=== PATIENT | female | born 1960 | race Caucasian/White ===

== ENCOUNTER 2018-06-25 14:31 | Inpatient (IN) | payer MEDICAID ==
[2018-06-25] MEDS ORDERED: NS 500 ML IV ONE (15:10)
[2018-06-25 15:25] LABS: PLATELET COUNT 172 10^3/uL (150-400)
[2018-06-25 16:02] LABS: INR 0.98 (0.83-1.16); PROTIME(PATIENT) 13.2 SEC (12.0-15.0)
--- NOTE | 2018-06-25 16:02 | EDPHY ---
H & P Time Seen by Provider: 06/25/18 14:56 HPI/ROS: HPI Fever, cough, chest pain with cough. On chemotherapy. 58-year-old female with family. Currently being treated for metastatic breast cancer by her oncologist Dr. Kory Avila. She last had chemotherapy on June 15. She reports that last night she started feeling febrile and developed a cough. She describes this as a dry hacking and nonproductive cough. She also reports that she has been constipated and without a bowel movement in the last 4 days. She has had some intermittent lower abdominal cramping secondary to this. She denies any urinary complaints. She has not been wheezing. Other than the cough she denies any difficulty breathing. She reports that she does get sore in her mid substernal area with the cough only. ROS: Constitutional: As above, no chills. No weakness. Eyes: No discharge. No changes in vision. ENT: No sore throat. No nasal congestion or rhinorrhea. Respiratory: As above. No shortness of breath. Cardiac: As above, no palpitations. Gastrointestinal: No abdominal pain, no vomiting, no diarrhea. Genitourinary: No hematuria. No dysuria or increased frequency with urination. Musculoskeletal: No back pain. No neck pain. No myalgias or arthralgias. Skin: No rashes. Neurological: No headache. No focal weakness or altered sensation. Past medical history: Metastatic breast cancer. As above. Social history: Nonsmoker. Here with family. No alcohol. Physical Exam: General Appearance: Alert, she is not in distress. This patient is responding to questions appropriately and in full sentences. This patient appears generally well-hydrated and well-nourished. Eyes: Pupils equal and round no pallor or injection. No lid edema, erythema or injection. ENT, Mouth: Mucous membranes are moist. The pharyngeal tissues are unremarkable. No edema or swelling. No asymmetry suggestive of abscess. No erythema or exudates. Respiratory: There are no retractions, lungs are clear to auscultation with good air movement bilaterally. No tachypnea. She has an intermittent nonproductive hacking cough. Cardiovascular: Regular rate and rhythm. No murmur appreciated. Gastrointestinal: Abdomen is soft and nontender, no masses, bowel sounds normal. No focal tenderness at McBurney's point. No Ayala sign. Neurological: Motor sensory function is grossly intact. Cranial nerves are normal. Skin: Warm and dry, no rashes. Musculoskeletal: Neck is supple and nontender. Extremities are symmetrical. All joints range without pain or impingement. Psychiatric: No agitation. No depression. Database: EKG: EKG time is 3:08 p.m.; EKG shows a narrow complex normal sinus rhythm with a ventricular rate of 89. The MO, QRS, QT intervals are within normal limits. There are no ST-T wave changes indicative of ischemic or injury pattern. No evidence of right heart strain. Interpreted by me. Imaging: Chest x-ray PA and lateral; the cardiac mediastinal silhouette is unremarkable. No evidence of infiltrate or pneumothorax. Findings suggestive of bronchitis. No other acute cardiopulmonary disease process noted. Interpreted by me. Procedures: Emergency department course: Initial triage vital signs reviewed. She is febrile and tachycardic with low- grade hypoxemia on room air at 90. Pulse oximetry on 2 L of nasal cannula 98%, blood pressure 101/70, heart rate 88 on re-evaluation at 4:00 p.m.. She has had 500 cc of IV normal saline. Likely source of fever is a viral bronchitis. EKG obtained and reviewed by myself. She meets initial criteria for sepsis. At 4:00 p.m. On review of her initial blood work and improvement of her vital signs she does not meet criteria for severe sepsis. I discussed admission with the patient and family. They endorse. 4:10 p.m., I discussed the case with on-call hospitalist Dr. Judith Self. She accepts this patient for admission to the hospitalist service. We will start the patient on IV cefepime and IV vancomycin in the emergency department. Antibiotic administration reviewed with Dr. Self. Results of diagnostic workup discussed with the patient and family. All of their questions were answered. The patient is positive for influenza A. She does not have any findings suggestive of pneumonia on her chest x-ray. Antibiotics as noted above will be held. This was discussed with the admitting hospitalist Dr. Self. She agrees. The patient was given 75 mg of Tamiflu. The patient's remaining emergency department course under my care has been uneventful. The patient is admitted in stable condition to the hospitalist service. Differential Diagnosis: The differential diagnosis on this patient includes but is not limited to leukocytosis, fever, bronchitis, pneumonia, influenza, history of metastatic breast cancer.. This represents a partial list of diagnoses considered. These considerations are based on history, physical exam, past history, reassessment and diagnostic testing. Smoking Status: Never smoked Constitutional: Initial Vital Signs Temperature (C) 39.1 C H 06/25/18 14:39 Heart Rate 115 H 06/25/18 14:39 Respiratory Rate 18 06/25/18 14:39 Blood Pressure 98/57 L 06/25/18 14:39 O2 Sat (%) 90 L 06/25/18 14:39 O2 Delivery Mode Nasal Cannula O2 (L/minute) 2 Allergies/Adverse Reactions: No Known Allergies Allergy (Unverified 06/25/18 14:37) Medical Decision Making - Diagnostics Imaging Results: Imaging Impressions Chest X-Ray 06/25/18 15:10 Impression: Prominence of perihilar interstitial markings and peribronchial cuffing. Findings are nonspecific but can be seen with bronchitis, reactive airway disease, or viral process. - Data Points Laboratory Results: Laboratory Results 06/25/18 14:50 06/25/18 14:50 06/25/18 06/25/18 06/25/18 15:21 15:10 14:50 WBC RBC Hgb Hct MCV MCH MCHC RDW Plt Count MPV Neut % (Auto) Lymph % (Auto) [place] % (Auto) Eos % (Auto) Baso % (Auto) Nucleat RBC Rel Count Absolute Neuts (auto) Absolute Lymphs (auto) Absolute Monos (auto) Absolute Eos (auto) Absolute Basos (auto) Absolute Nucleated RBC Immature Gran % Immature Gran # Platelet Estimate PT 13.2 SEC SEC (12.0-15.0) INR 0.98 (0.83-1.16) APTT 26.3 SEC SEC (23.0-38.0) VBG Lactic Acid Sodium Potassium Chloride Carbon Dioxide Anion Gap BUN Creatinine Estimated GFR Glucose Calcium Total Bilirubin POC Troponin I 0.03 ng/mL ng/mL (0.00-0.08) Nasal Influenza A PCR FLU A DETECTED H (NEGATIVE) Nasal Influenza B PCR NEGATIVE FOR FLU B (NEGATIVE) 06/25/18 06/25/18 06/25/18 14:50 14:50 14:50 WBC 26.42 10^3/uL H 10^3/uL (3.80-9.50) RBC 3.72 10^6/uL L 10^6/uL (4.18-5.33) Hgb 12.2 g/dL L g/dL (12.6-16.3) Hct 37.8 % L % (38.0-47.0) MCV 101.6 fL H fL (81.5-99.8) MCH 32.8 pg pg (27.9-34.1) MCHC 32.3 g/dL L g/dL (32.4-36.7) RDW 17.8 % H % (11.5-15.2) Plt Count 172 10^3/uL 10^3/uL (150-400) MPV 10.1 fL fL (8.7-11.7) Neut % (Auto) Pending Lymph % (Auto) Pending [place] % (Auto) Pending Eos % (Auto) Pending Baso % (Auto) Pending Nucleat RBC Rel Count Pending Absolute Neuts (auto) Pending Absolute Lymphs (auto) Pending Absolute Monos (auto) Pending Absolute Eos (auto) Pending Absolute Basos (auto) Pending Absolute Nucleated RBC Pending Immature Gran % Pending Immature Gran # Pending Platelet Estimate Pending PT INR APTT VBG Lactic Acid Sodium 135 mEq/L mEq/L (135-145) Potassium 4.2 mEq/L mEq/L (3.5-5.2) Chloride 106 mEq/L mEq/L (97-110) Carbon Dioxide 24 mEq/l mEq/l (22-31) Anion Gap 5 mEq/L L mEq/L (6-14) BUN 11 mg/dL mg/dL (7-23) Creatinine 0.7 mg/dL mg/dL (0.6-1.0) Estimated GFR > 60 Glucose 91 mg/dL mg/dL (70-100) Calcium 8.5 mg/dL mg/dL (8.5-10.4) Total Bilirubin 0.4 mg/dL mg/dL (0.1-1.4) POC Troponin I Nasal Influenza A PCR Nasal Influenza B PCR 06/25/18 14:50 WBC RBC Hgb Hct MCV MCH MCHC RDW Plt Count MPV Neut % (Auto) Lymph % (Auto) [place] % (Auto) Eos % (Auto) Baso % (Auto) Nucleat RBC Rel Count Absolute Neuts (auto) Absolute Lymphs (auto) Absolute Monos (auto) Absolute Eos (auto) Absolute Basos (auto) Absolute Nucleated RBC Immature Gran % Immature Gran # Platelet Estimate PT INR APTT VBG Lactic Acid 1.1 mmol/L mmol/L (0.7-2.1) Sodium Potassium Chloride Carbon Dioxide Anion Gap BUN Creatinine Estimated GFR Glucose Calcium Total Bilirubin POC Troponin I Nasal Influenza A PCR Nasal Influenza B PCR Medications Given: Discontinued Medications Acetaminophen (Tylenol) 1,000 mg PO EDNOW ONE Stop: 06/25/18 16:05 Last Admin: 06/25/18 16:08 Dose: 1,000 mg Sodium Chloride (Ns) 500 mls @ 1,000 mls/hr IV EDNOW ONE PRN Reason: Protocol Stop: 06/25/18 15:39 Last Admin: 06/25/18 15:19 Dose: 500 mls Point of Care Test Results: Chemistry 06/25/18 15:21 POC Troponin I 0.03 ng/mL ng/mL (0.00-0.08) Departure - Departure Disposition: [facility] Acute Clinical Impression: Leukocytosis, Bronchitis, Fever, Metastatic breast cancer, On chemotherapy, Influenza A Referrals: Venus Rivas MD [Primary Care Provider] - As per Instructions
[2018-06-25] MEDS ORDERED: ACETAMINOPHEN 500 MG TAB PO ONE (16:04)
[2018-06-25] MEDS ORDERED: CEFEPIME HCL 2 GM in NS 100 ML IV ONE (16:06)
[2018-06-25] MEDS ORDERED: VANCOMYCIN HCL/NORMAL SALINE 250 ML IV ONE (16:07)
[2018-06-25] MEDS ORDERED: OSELTAMIVIR PHOSPHATE 75 MG CAP PO ONE (16:29)
[2018-06-25] MEDS ORDERED: ONDANSETRON 4 MG/2 ML VIAL IVP PRN (16:46)
[2018-06-25] MEDS ORDERED: ACETAMINOPHEN 325 MG TAB PO PRN (16:46)
[2018-06-25] MEDS ORDERED: BENZONATATE 100 MG CAP PO PRN (17:32)
[2018-06-25] MEDS ORDERED: LORazepam 1 MG TAB PO PRN (17:33)
[2018-06-25] MEDS ORDERED: BISACODYL 10 MG SUPP PR PRN (18:09)
[2018-06-25] MEDS ORDERED: MAGNESIUM HYDROXIDE 30 ML UDCUP PO PRN (18:09)
[2018-06-25] MEDS ORDERED: LACTULOSE 20 GM/30 ML UDCUP PO PRN (18:09)
[2018-06-25] MEDS ORDERED: POLYETHYLENE GLYCOL 3350 17 GM PKT PO PRN (18:09)
[2018-06-25] MEDS ORDERED: LORazepam 2 MG/ML INJ IVP PRN (18:12)
[2018-06-25] MEDS ORDERED: NS 1,000 ML IV SCH (18:15)
[2018-06-25] MEDS: OSELTAMIVIR PHOSPHATE 75 MG CAP PO SCH (18:33)
--- NOTE | 2018-06-25 18:43 | GHP ---
[f rep st] HISTORY AND PHYSICAL DATE OF ADMISSION: 06/25/2018 CHIEF COMPLAINT: Cough, fever. HISTORY OF PRESENT ILLNESS: A pleasant 58-year-old female, currently on chemotherapy for metastatic breast cancer by Dr. Mosqueda. Last chemotherapy June 15. Normally does not feel well a couple days after chemo, but noticed she felt more fatigued and nauseous than normal. [facility]ed to [facility] the following week and was treated with IV fluids, antiemetics, and steroids. Developed new productive cough last night with yellow sputum last night with associated sharp chest pain. Febrile to 101.9. Normal appetite and p.o. intake. Constipated for 4 days, which is not normal for her. Mild crampy abdominal pain. Not passing much gas. REVIEW OF SYSTEMS: I completed a 10-point review of systems, negative except as noted in HPI. PAST MEDICAL HISTORY: Metastatic breast cancer, on chemotherapy; hypothyroidism. PAST SURGICAL HISTORY: Removal of ovary and fallopian tube, rectocele/ cystocele surgery, breast implants. SOCIAL HISTORY: Lives in [place] by herself. Has 3 kids. No alcohol, tobacco , or illicits. FAMILY HISTORY: Maternal grandpa with DE, aunts with lung cancer, uncle with liver cancer. HOME MEDICATIONS: Ativan 0.25 mg q.6 hours p.r.n., dexamethasone as needed, Zofran as needed, levothyroxine, [place] Thyroid. ALLERGIES: None. PHYSICAL EXAMINATION: VITAL SIGNS: Temperature 38.2, blood pressure 91/52, heart rate in the 80s, respirations 16, and 92% on room air. GENERAL: Fatigued , but no acute distress. HEENT: PERRLA. Moist mucous membranes. CV: Regular rate and rhythm. LUNGS: Diminished, but no crackles or wheezes. ABDOMEN: Soft, nontender, nondistended. Positive bowel sounds. : Positive bowel sounds throughout. No tenderness with palpation. NEURO: 2 through 12 intact. PSYCH: Alert and oriented x3. LABS: WBCs 26, hemoglobin 12, hematocrit 37, platelets 172. Sodium 135, potassium 4.2, chloride 106, carbon dioxide 24, creatinine 0.7. Troponin 0.03. Coags within normal. Influenza A positive. Chest x-ray: personally reviewed by me. Perihilar interstitial markings. No overt opacity. EKG is personally reviewed by me. Normal sinus rhythm, ST flattening lateral leads. ASSESSMENT AND PLAN: 1. Influenza A: Tamiflu for 5 days. Supportive care with antitussives, intravenous Toradol for pain, intravenous fluids. 2. Sepsis: febrile, tachy, leukocytosis. Due to above. No PNA on CXR. Blood cultures pending 3. Leukocytosis: recently dosed Neulasta, steroids. Repeat in the morning. 4. Metastatic breast cancer: Followed by Dr. Mosqueda. Last chemotherapy 06/15. 5. Hypothyroidism: levothyroxine. 6. Diet: Regular. 7. Constipation: Check an abdominal x-ray and bowel regimen. 8. Deep venous thrombosis prophylaxis: Lovenox. DISPOSITION: Observation admission for supportive care with IV fluids, Tamiflu , and bowel regimen. /[id number]/MODL MTDD
[2018-06-25] MEDS: KETOROLAC 30 MG/1 ML SDV IVP PRN (19:51)
[2018-06-25] MEDS: GUAIFENESIN/DM 10 ML UDCUP PO PRN (19:52)
[2018-06-25] MEDS: SENNOSIDES/DOCUSATE SODIUM TAB PO SCH (19:52)
--- NOTE | 2018-06-25 22:58 | CPEKG ---
Test Reason : OPEN Blood Pressure : / mmHG Vent. Rate : 089 BPM Atrial Rate : 089 BPM P-R Int : 130 ms QRS Dur : 069 ms QT Int : 349 ms P-R-T Axes : 019 046 022 degrees QTc Int : 425 ms Sinus rhythm Confirmed by Deonte Lomeli ([id number]) on 06/25/2018 10:58:26 PM Referred By: Deonte Lomeli Confirmed By:Deonte Lomeli
[2018-06-25] MEDS: LORazepam 2 MG/ML INJ IVP PRN (23:08)
[2018-06-26] MEDS: LEVOTHYROXINE 75 MCG TAB PO SCH (06:09)
[2018-06-26] MEDS: LORazepam 2 MG/ML INJ IVP PRN (06:25)
[2018-06-26] MEDS: GUAIFENESIN/DM 10 ML UDCUP PO PRN (06:25)
[2018-06-26] MEDS: OSELTAMIVIR PHOSPHATE 75 MG CAP PO SCH ×2 (08:43→18:05)
[2018-06-26] MEDS: SENNOSIDES/DOCUSATE SODIUM TAB PO SCH ×2 (08:43→20:39)
[2018-06-26] MEDS: THYROID 60 MG TAB PO SCH (08:44)
[2018-06-26] MEDS: ENOXAPARIN 40 MG/0.4 ML SYR SC SCH (08:44)
[2018-06-26 10:22] LABS: PLATELET COUNT 125 10^3/uL (150-400)
--- NOTE | 2018-06-26 14:36 | ASMTCMCOM ---
CM Note CM Note Notes: Chart reviewed. Patient is a 89 year old female with known breast cancer, last chemotherapy 06/15/18. She was admitted via ED with c/o increasing couch and chest pain. She has been diagnosed with influenza A. Currently lives independently in [place] with support from her adult children. She is connected with our breast health filler shredder machine Sarah Beth Reece. [employer] funds recently accessed? Will speak with filler shredder machine. Plan: Likely to discharge to home independently when medically cleared for discharge. Date Signed: 06/26/2018 02:36 PM Electronically Signed By:Chantel Bello RN
--- NOTE | 2018-06-26 15:03 | HOSPPROG ---
Hospitalist Progress Note Assessment/Plan: 58 yo F w breast CA here w influenza A flu: tamiflu leukocytosis: likely 2/2 recent neulasta hypoxia: was 90% on RA start IS check RA sat proph : add lmwh dispo: change to inpt Subjective: cxr w no focal infiltrate (interp by me) Objective: Vital Signs Temp Pulse Resp BP Pulse Ox 37.1 C 79 16 93/54 L 99 06/26/18 11:28 06/26/18 11:28 06/26/18 11:28 06/26/18 11:28 06/26/18 11:28 Laboratory Results 06/26/18 09:07 06/25/18 06/26/18 06/27/18 05:59 05:59 05:59 Intake Total 1000 Output Total 200 Balance 800 PT 13.2 SEC (12.0-15.0) 06/25/18 14:50 INR 0.98 (0.83-1.16) 06/25/18 14:50 - Physical Exam Constitutional: no apparent distress Eyes: PERRL, anicteric sclera Ears, Nose, Mouth, Throat: moist mucous membranes, hearing normal Cardiovascular: regular rate and rhythym, no murmur, rub, or gallop Respiratory: no respiratory distress, no rales or rhonchi, No inspiratory crackles Gastrointestinal: normoactive bowel sounds, soft, non-tender abdomen Genitourinary: no bladder fullness, No ta in urethra Skin: warm, normal color Musculoskeletal: full muscle strength, no muscle tenderness Neurologic: AAOx3 Psychiatric: interacting appropriately ICD10 Worksheet Patient Problems: Problems Problem Status Onset Bronchitis Acute Fever Acute Influenza A Acute Leukocytosis Acute Metastatic breast cancer Acute
--- NOTE | 2018-06-26 15:48 | PDMN ---
Medical Necessity Medical necessity: [facility] S160 Sepsis, A-3 days: 58 yo w/ sepsis 2nd influenza in setting of metastatic breast ca on chemo last received 06/15/18. Pt remains hypotensive and still w/ hypoxia after obs care requiring additional MN for ongoing monitoring and tx of the above. WBC still elevated. Platelets dropped from WNL to 125K. Cont lab checks, O2, BC pending. Change to IP status 06/26/18 @1506 per MD order.
[2018-06-26] MEDS ORDERED: LORazepam 2 MG/ML INJ IVP ONE (20:28)
[2018-06-27] MEDS: LEVOTHYROXINE 75 MCG TAB PO SCH (06:11)
--- NOTE | 2018-06-27 08:30 | HOSPPROG ---
Hospitalist Progress Note Assessment/Plan: DIAGNOSES: * Acute influenza a infection * Nausea vomiting * Sternal pain from coughing * Ongoing constipation from chemotherapy * Significant deconditioning and weakness * Anemia and thrombocytopenia from chemotherapy, more worsened on yesterday's lab draw but not checked today * Breast cancer with active chemotherapy, status post Neulasta PLANS: * Continue IV hydration * Continue Tamiflu * Anti emetics * Will add Lidoderm patch for this sternal pain to see how much this helps * Cough suppressant * Recheck blood counts in a.m. * Attempt increase activity as able Reviewed with Dr. Rain today SUBJECTIVE: Still extremely weak, still having difficulty with nausea Has had some watery liquid per rectum but no stool passed Minimal appetite has not really eaten much at all OBJECTIVE Vitals reviewed: Afebrile overnight, otherwise stable vitals Exam: alert oriented skin warm dry color ok Chest there is tenderness at the upper sternum along both left and right border with no visible or palpable abnormality resps not labored lungs clear BSs heart regular abd soft nondistended nontender, bowel sounds present limbs warm, no edema iv site ok Objective: Vital Signs Temp Pulse Resp BP Pulse Ox 36.8 C 75 16 82/46 L 94 06/27/18 04:00 06/27/18 04:00 06/27/18 04:00 06/27/18 04:00 06/27/18 04:00 06/26/18 06/27/18 06/28/18 06:59 06:59 06:59 Intake Total 1100 Balance 1100 PT 13.2 SEC (12.0-15.0) 06/25/18 14:50 INR 0.98 (0.83-1.16) 06/25/18 14:50 ICD10 Worksheet Patient Problems: Problems Problem Status Onset Bronchitis Acute Fever Acute Influenza A Acute Leukocytosis Acute Metastatic breast cancer Acute
[2018-06-27] MEDS: OSELTAMIVIR PHOSPHATE 75 MG CAP PO SCH ×2 (09:30→18:06)
[2018-06-27] MEDS: THYROID 60 MG TAB PO SCH (09:30)
[2018-06-27] MEDS: ENOXAPARIN 40 MG/0.4 ML SYR SC SCH (09:31)
[2018-06-27] MEDS: SENNOSIDES/DOCUSATE SODIUM TAB PO SCH ×2 (10:04→22:20)
[2018-06-27] MEDS: GUAIFENESIN/DM 10 ML UDCUP PO PRN (10:32)
[2018-06-27] MEDS: LIDOCAINE 4%/MENTHOL 1% PATCH TD SCH (11:57)
[2018-06-27] MEDS: ONDANSETRON DISINTEGRATING 4 MG TAB PO PRN (15:13)
[2018-06-27] MEDS: NS 1,000 ML IV SCH (17:08)
[2018-06-27] MEDS ORDERED: LORazepam 2 MG/ML INJ IVP ONE (22:11)
[2018-06-27] MEDS: PATCH REMOVAL 1 EA PATCH TD SCH (22:25)
[2018-06-28] MEDS: LEVOTHYROXINE 75 MCG TAB PO SCH (06:36)
[2018-06-28] MEDS: NS 1,000 ML IV SCH ×2 (06:37→18:08)
[2018-06-28] MEDS: KETOROLAC 30 MG/1 ML SDV IVP PRN (08:54)
[2018-06-28] MEDS: GUAIFENESIN/DM 10 ML UDCUP PO PRN ×2 (08:59→22:13)
[2018-06-28] MEDS: THYROID 60 MG TAB PO SCH (08:59)
[2018-06-28] MEDS: OSELTAMIVIR PHOSPHATE 75 MG CAP PO SCH ×2 (09:00→18:03)
[2018-06-28] MEDS: SENNOSIDES/DOCUSATE SODIUM TAB PO SCH ×2 (09:00→22:12)
[2018-06-28] MEDS: LIDOCAINE 4%/MENTHOL 1% PATCH TD SCH (09:01)
[2018-06-28] MEDS: CETIRIZINE 10 MG TAB PO SCH (09:01)
[2018-06-28] MEDS: ONDANSETRON DISINTEGRATING 4 MG TAB PO PRN (09:18)
[2018-06-28 13:15] LABS: PLATELET COUNT 136 10^3/uL (150-400)
--- NOTE | 2018-06-28 14:21 | ASMTCMCOM ---
CM Note CM Note Notes: Patient plan of care reviewed in am rounds. Discussed also with lead caregiver Sarah Beth Reece. Patient is very stressed by current health and financial situations. Sarah Beth has met with patient and is working with her on resources and will apply for the [employer]. CM to follow for needs. Plan: Likely to discharge independently. Date Signed: 06/28/2018 02:21 PM Electronically Signed By:Chantel Bello RN
--- NOTE | 2018-06-28 14:54 | HOSPPROG ---
Hospitalist Progress Note Assessment/Plan: DIAGNOSES: * Acute influenza a infection * Nausea vomiting * Sternal pain from coughing * Ongoing constipation from chemotherapy * Significant deconditioning and weakness * Anemia and thrombocytopenia from chemotherapy, more worsened on yesterday's lab draw but not checked today * Breast cancer with active chemotherapy, status post Neulasta PLANS: * Continue IV hydration * Continue Tamiflu * Antiemetics * Continue Lidoderm patch for this sternal pain * Cough suppressant * Continue to attempt increase activity as able Reviewed with Dr. Rain today SUBJECTIVE: "I feel like I have been run over by a truck" Still with diffuse aches, nausea, severe weakness, headache, coughing Not short of breath States Lidoderm patch helping her quite a bit with her sternal tenderness OBJECTIVE Vitals reviewed: Afebrile overnight, blood pressure is on low side but close to her baseline, otherwise normal vitals Exam: alert oriented looks very weak and tired lying in bed skin warm dry color ok Chest still tenderness at the upper sternum resps not labored lungs clear BSs heart regular abd soft nondistended nontender, bowel sounds present limbs warm, no edema iv site ok White count hemoglobin and platelets all improved today Lab data: Thyroid tests have come back normal at this time Objective: Vital Signs Temp Pulse Resp BP Pulse Ox 36.6 C 62 16 88/49 L 94 06/28/18 11:51 06/28/18 11:51 06/28/18 11:51 06/28/18 11:51 06/28/18 11:51 Laboratory Results 06/28/18 12:38 06/27/18 06/28/18 06/29/18 06:59 06:59 06:59 Intake Total 1100 1433 Balance 1100 1433 PT 13.2 SEC (12.0-15.0) 06/25/18 14:50 INR 0.98 (0.83-1.16) 06/25/18 14:50 ICD10 Worksheet Patient Problems: Problems Problem Status Onset Bronchitis Acute Fever Acute Influenza A Acute Leukocytosis Acute Metastatic breast cancer Acute
[2018-06-28] MEDS ORDERED: IBUPROFEN 200 MG TAB PO PRN (16:06)
[2018-06-28] MEDS: ENOXAPARIN 40 MG/0.4 ML SYR SC SCH (18:03)
[2018-06-28] MEDS: LORazepam 0.5 MG TAB PO PRN (22:12)
[2018-06-28] MEDS: PATCH REMOVAL 1 EA PATCH TD SCH (22:25)
[2018-06-28] MEDS ORDERED: LORazepam 0.5 MG TAB PO ONE (22:27)
[2018-06-29] MEDS ORDERED: LEVOTHYROXINE 75 MCG TAB PO SCH (06:00)
[2018-06-29] MEDS: LIDOCAINE 4%/MENTHOL 1% PATCH TD SCH (10:24)
[2018-06-29] MEDS: OSELTAMIVIR PHOSPHATE 75 MG CAP PO SCH ×2 (10:25→18:30)
[2018-06-29] MEDS: CETIRIZINE 10 MG TAB PO SCH (10:25)
[2018-06-29] MEDS: SENNOSIDES/DOCUSATE SODIUM TAB PO SCH ×2 (10:26→19:36)
[2018-06-29] MEDS: ENOXAPARIN 40 MG/0.4 ML SYR SC SCH (10:27)
[2018-06-29] MEDS: THYROID 60 MG TAB PO SCH (10:30)
[2018-06-29] MEDS: GUAIFENESIN/DM 10 ML UDCUP PO PRN (10:30)
[2018-06-29] MEDS: LORazepam 0.5 MG TAB PO PRN (19:34)
--- NOTE | 2018-06-29 21:21 | HOSPPROG ---
Hospitalist Progress Note Assessment/Plan: DIAGNOSES: * Acute influenza a infection, severely weakened and anorexic from this * Nausea vomiting * Sternal pain from coughing * Ongoing constipation from chemotherapy is beginning to resolve * Significant deconditioning and weakness * Pancytopenia from chemotherapy * Breast cancer with active chemotherapy, status post Neulasta PLANS: * Continue IV hydration * Continue Tamiflu * Antiemetics * Continue Lidoderm patch for this sternal pain * Cough suppressant * Continue to attempt increase activity as able At this time she is still too weak to do well at home, hopefully will be able to get home tomorrow Seen on multidisciplinary rounds and hospitals rounds today SUBJECTIVE: Still extremely weak and tired but getting back some appetite and feels a bit less sick, has not been ambulating yet No chills or sweats No dyspnea She still feels too weak to be able to trying go home OBJECTIVE Vitals reviewed: Afebrile overnight, blood pressure is on low side but close to her baseline, otherwise normal vitals Exam: alert oriented still looks very weak and tired lying in bed skin warm dry color ok Chest sternal tenderness better resps not labored lungs clear BSs heart regular abd soft nondistended nontender, bowel sounds present limbs warm, no edema Objective: Vital Signs Temp Pulse Resp BP Pulse Ox 36.7 C 68 16 106/72 97 06/29/18 19:54 06/29/18 19:54 06/29/18 19:54 06/29/18 19:54 06/29/18 19:54 Laboratory Results 06/28/18 12:38 06/28/18 06/29/18 06/30/18 06:59 06:59 06:59 Intake Total 1433 4112 1250 Balance 1433 4112 1250 PT 13.2 SEC (12.0-15.0) 06/25/18 14:50 INR 0.98 (0.83-1.16) 06/25/18 14:50 ICD10 Worksheet Patient Problems: Problems Problem Status Onset Bronchitis Acute Fever Acute Influenza A Acute Leukocytosis Acute Metastatic breast cancer Acute
[2018-06-29] MEDS: PATCH REMOVAL 1 EA PATCH TD SCH (21:30)
[2018-06-30] MEDS: LEVOTHYROXINE 75 MCG TAB PO SCH (05:26)
[2018-06-30] MEDS: ENOXAPARIN 40 MG/0.4 ML SYR SC SCH (10:02)
[2018-06-30] MEDS: THYROID 60 MG TAB PO SCH (10:03)
[2018-06-30] MEDS: LIDOCAINE 4%/MENTHOL 1% PATCH TD SCH (10:03)
[2018-06-30] MEDS: CETIRIZINE 10 MG TAB PO SCH (10:04)
[2018-06-30] MEDS: GUAIFENESIN/DM 10 ML UDCUP PO PRN (10:11)
[2018-06-30] MEDS: SENNOSIDES/DOCUSATE SODIUM TAB PO SCH ×2 (18:20→23:17)
[2018-06-30] MEDS ORDERED: OSELTAMIVIR PHOSPHATE 75 MG CAP PO ONE (18:30)
[2018-06-30] MEDS: ONDANSETRON DISINTEGRATING 4 MG TAB PO PRN (18:43)
--- NOTE | 2018-06-30 19:08 | HOSPPROG ---
Hospitalist Progress Note Assessment/Plan: DIAGNOSES: * Acute influenza a infection, severely weakened and anorexic from this * Nausea vomiting * Sternal pain from coughing * Ongoing constipation from chemotherapy is beginning to resolve * Significant deconditioning and weakness * Pancytopenia from chemotherapy * Breast cancer with active chemotherapy, status post Neulasta PLANS: * Continue IV hydration * Continue Tamiflu (last dose today) * Antiemetics prn * Continue Lidoderm patch for sternal pain * Cough suppressant prn * Continue to attempt increase activity as able Again today she remains weak and unsteady enough on feet she is not comfortable going home SUBJECTIVE: eating and drinking a bit better no sob can ambulate but unsteady on feet and develops fatigue and weakness, needing to stop and rest after short distance OBJECTIVE Vitals reviewed: Intermittently hypotensive (85/51 supine this afternoon) Exam: alert oriented still looks very weak and tired lying in bed skin warm dry color ok resps not labored lungs clear BSs heart regular abd soft nondistended nontender, bowel sounds present limbs warm, no edema Objective: Vital Signs Temp Pulse Resp BP Pulse Ox 36.7 C 72 16 97/60 L 95 06/30/18 16:00 06/30/18 18:08 06/30/18 16:00 06/30/18 18:08 06/30/18 18:08 Laboratory Results 06/28/18 12:38 06/29/18 06/30/18 07/01/18 06:59 06:59 06:59 Intake Total 4112 1250 500 Output Total 0 Balance 4112 1250 500 PT 13.2 SEC (12.0-15.0) 06/25/18 14:50 INR 0.98 (0.83-1.16) 06/25/18 14:50 ICD10 Worksheet Patient Problems: Problems Problem Status Onset Bronchitis Acute Fever Acute Influenza A Acute Leukocytosis Acute Metastatic breast cancer Acute
[2018-06-30] MEDS: PATCH REMOVAL 1 EA PATCH TD SCH (23:17)
[2018-07-01] MEDS: LORazepam 0.5 MG TAB PO PRN (01:12)
[2018-07-01] MEDS: GUAIFENESIN/DM 10 ML UDCUP PO PRN (01:15)
[2018-07-01] MEDS: LEVOTHYROXINE 75 MCG TAB PO SCH (06:16)
[2018-07-01] MEDS: THYROID 60 MG TAB PO SCH (08:45)
[2018-07-01] MEDS: CETIRIZINE 10 MG TAB PO SCH (08:46)
[2018-07-01] MEDS: LIDOCAINE 4%/MENTHOL 1% PATCH TD SCH (08:46)
[2018-07-01] MEDS: SENNOSIDES/DOCUSATE SODIUM TAB PO SCH (08:46)
[2018-07-01] MEDS: ENOXAPARIN 40 MG/0.4 ML SYR SC SCH (08:47)
[2018-07-01] MEDS: ONDANSETRON DISINTEGRATING 4 MG TAB PO PRN (08:53)
[2018-07-01 08:59] VITALS: BP 85/53
--- NOTE | 2018-07-01 14:30 | ASDISCHSUM ---
Discharge Information Plan Status:Home with No Needs Medically Cleared to Leave: Discharge Date: CM D/C Disposition:Home, Routine, Self-Care ADT D/C Disposition:Home, Routine, Self-Care Projected Discharge Date: Transportation at D/C:Family Discharge Delay Reason: Follow-Up Date: Discharge Slot: Final Diagnosis: Placement Information Patient Contact Information Contact Name:FRED Relationship:Ayden Address: Work Phone: City: [facility] Phone: State/[place] Code: Email: Financial Information Financial Class:Medicaid Primary Plan Desc:[employer] [place] [place] Primary Plan Number:[id number] Secondary Plan Desc: Secondary Plan Number: Assessment Information LACE LACE Length of stay for Answers: 4-6 days current admission Acuity / Level of Answers: Yes Care: Did the patient have an inpatient admission? Comorbidities - select Answers: Any tumor (including all that apply lymphoma or leukemia) Other Notes: Hypothyroid # of Emergency department Answers: 1-2 visits in the last 6 months Score: 11 Date Signed: 07/01/2018 02:30 PM Electronically Signed By:Jahaira Glynn [facility] CM Progress Note CM Note CM Note Notes: Chart reviewed. Patient is a 89 year old female with known breast cancer, last chemotherapy 06/15/18. She was admitted via ED with c/o increasing couch and chest pain. She has been diagnosed with influenza A. Currently lives independently in [place] with support from her adult children. She is connected with our breast health pharmacy billing adjudicator Sarah Beth Reece. [employer] recently accessed? Will speak with pharmacy billing adjudicator. Plan: Likely to discharge to home independently when medically cleared for discharge. Date Signed: 06/26/2018 02:36 PM Electronically Signed By:Chantel Bello RN [facility] Progress Note CM Note CM Note Notes: Patient plan of care reviewed in am rounds. Discussed also with pharmacy billing adjudicator Sarah Beth Reece. Patient is very stressed by current health and financial situations. Sarah Beth has met with patient and is working with her on resources and will apply for the [employer]. CM to follow for needs. Plan: Likely to discharge independently. Date Signed: 06/28/2018 02:21 PM Electronically Signed By:Chantel Bello RN Intervention Information Intervention Type:*Incorrect Registration Date of Service:06/26/2018 09:56 AM Patient Type:Inpatient Staff Member:Albina Chatterjee Hours: Discipline: Severity: Comment:
--- NOTE | 2018-07-01 15:59 | GDS ---
[f rep st] DISCHARGE SUMMARY DIAGNOSES: 1. Influenza with secondary sternal pain. 2. Metastatic breast cancer, on chemotherapy. 3. Hypothyroidism. HOSPITAL COURSE: The patient is a 58-year-old with a diagnosis of metastatic breast cancer followed by Dr. Mosqueda. She comes in with increasing sternal pain, cough, and weakness. She was febrile to 10 1.9. On admission, she was diagnosed with influenza, started on Tamiflu. However, her improvement w as quite slow due to her breast cancer and recent chemotherapy. Her main complaint was weakness, cou gh, and some shortness of breath. Over the course of her hospitalization, she did participate in phy sical therapy and at the time of discharge, she is feeling much improved. Her sternal pain is taken care of by a Lidoderm patch and her energy level is improved. She already has followup scheduled wit shawn Mosqueda on this Tuesday to discuss possible resumption of chemotherapy on . CONDITION ON DISCHARGE: Good. Vital signs are stable. She has been afebrile, although she is still mildly hypotensive. That is baseline for her. DISCHARGE MEDICATIONS: Please see discharge medication form. FOLLOWUP: She will follow up with Dr. Mosqueda as scheduled. Total time spent with patient on day of discharge and coordination of care is 35 minutes. /[id number]/MODL
== END 2018-07-01 14:53 | disposition home or self-care (01) | DRG 113 ==
LOC: INTOOBSV 16:07 → F1N 17:39 → OBSVTOIN 06-26 15:06
PROVIDERS: ADMIT Internal Medicine; ATTEND Internal Medicine
DX: J10.1 Influenza due to other identified influenza virus with other respiratory manifestations (principal); D69.59 Other secondary thrombocytopenia; C50.919 Malignant neoplasm of unspecified site of unspecified female breast; D64.81 Anemia due to antineoplastic chemotherapy; E03.9 Hypothyroidism, unspecified; E86.9 Volume depletion, unspecified; K59.03 Drug induced constipation; T45.1X5A Adverse effect of antineoplastic and immunosuppressive drugs, initial encounter; Z80.1 Family history of malignant neoplasm of trachea, bronchus and lung; Z80.0 Family history of malignant neoplasm of digestive organs
CPT/HCPCS: 84481-90; 84484-ER; G0378; J0692; J1650; J1885; J2060; J2405